=== PATIENT | male | born 1950 | race Two or more races ===

== ENCOUNTER 2019-08-05 08:20 | Day surgery (SDC) | payer MEDICARE, BC ==
[~2019-08-05] VITALS: Ht 182.9 cm; Wt 77.1 kg
[2019-08-05] VITALS (9 sets, daily range): BP systolic 125–158; BP diastolic 68–105
[2019-08-05] MEDS ORDERED: Lidocaine 1% MPF 10mg/ml 5ml ONE (09:00)
[2019-08-05] MEDS ORDERED: LR 1000ml ONE (09:00)
[2019-08-05] MEDS ORDERED: Propofol 200mg/20ml IV ONE (09:00)
--- NOTE | 2019-08-05 09:15 | Anethesia Preoperative Eval ---
Anesthesia Pre-op PMH/ROS General Date of Evaluation: Aug 05, 2019 Time of Evaluation: 09:12 Anesthesiologist: albert ASA Score: ASA 3 Mallampati Score Class I : Soft palate, uvula, fauces, pillars visible Class II: Soft palate, uvula, fauces visible Class III: Soft palate, base of uvula visible Class IV: Only hard plate visible Mallampati Classification: Class II Surgeon: carlos Diagnosis: blood in stool Surgical Procedure: egd/colonoscopy Anesthesia History: none Social History: smoking - nonsmoker Family History: no anesthesia problems Allergies: Coded Allergies: Ibuprofen (Verified Allergy, Itching, 08/05/19) Medications: see eMAR Patient NPO?: Yes Past Medical History Cardiovascular: Reports: HTN Pulmonary: Reports: other - sob Gastrointestinal/Genitourinary: Reports: other - colitis Hematology/Immune: Reports: anemia Musculoskeletal/Integumentary: Reports: other - left hand fracture Anesthesia Pre-op Phys. Exam Physician Exam Last Vital Signs Date Time Temp Pulse Resp B/P (MAP) Pulse Ox O2 Delivery O2 Flow Rate FiO2 08/05/19 09:04 98.5 100 18 135/77 96 Room Air Constitutional: NAD Neurologic: CN 2-12 intact Cardiovascular: RRR Respiratory: CTA Gastrointestinal: S/NT/ND Airway Exam Mallampati Score: Class II MO: limited Neck: flexible TMD: 2fb ROM: limited Anesthesia Pre-op A/P Risk Assessment & Plan Assessment: asa3 Plan: mac Status Change Before Surgery: No Pre-Antibiotics Drug: Lala Estrella MD Aug 05, 2019 09:15
[2019-08-05] MEDS ORDERED: LR 1000ml 1,000 ML IVLG SCH (09:24)
[2019-08-05] MEDS ORDERED: Midazolam 2mg/2ml Inj IVP PRN (09:30)
[2019-08-05] MEDS ORDERED: Atropine Inj 1mg/10ml Syr IV PRN (09:30)
[2019-08-05] MEDS ORDERED: fentaNYL 100 mcg/2 mL IV PRN (09:30)
[2019-08-05] MEDS ORDERED: DiphenhydrAMINE 50mg/ml Inj IVP PRN (09:30)
--- NOTE | 2019-08-05 09:32 | Short Stay Surgery H&P ---
History of Present Illness History of Present Illness Chief Complaint see attached H&P HPI Aguila Goss is a 69 year old male who was admitted on for Blood In Stool, Left Side Colitis Patient History Allergies: Coded Allergies: NSAIDS (NON-STEROIDAL ANTI-INFLAMMA (Verified Allergy, Severe, HIVES/RASH , 08/05/19) IBUPROFEN (Verified Allergy, Unknown, Itching, 08/05/19) Medication History No Active Prescriptions or Reported Meds Physical Exam Vital Signs Last Vital Signs Date Time Temp Pulse Resp B/P (MAP) Pulse Ox O2 Delivery O2 Flow Rate FiO2 08/05/19 09:09 Room Air 08/05/19 09:04 98.5 100 18 135/77 96 Plan Attestation Are the patient's medical conditions optimized for surgery? Dylan Pollack MD Aug 05, 2019 09:32
--- NOTE | 2019-08-05 09:32 | Pre-Procedure Note/Attestation ---
Pre-Procedure Note/Attestation Complete Prior to Procedure Planned Procedure: not applicable Procedure Narrative: esophagogastroduodenoscopy colon Indications for Procedure Pre-Operative Diagnosis: anemia OB (+) colitis Attestation I attest that I discussed the nature of the procedure; its benefits; risks and complications; and alternatives (and the risks and benefits of such alternatives ), prior to the procedure, with the patient (or the patient's legal volunteer patient representative). I attest that, if there was a reasonable possibility of needing a blood transfusion, the patient (or the patient's legal volunteer patient representative) was given the [facility] standardized written summary, pursuant to the Christian Belding Blood Safety Act ([place] Health and Safety Code # 1645, as amended). I attest that I re-evaluated the patient just prior to the surgery and that there has been no change in the patient's H&P, except as documented below: Dylan Pollack MD Aug 05, 2019 09:32
--- NOTE | 2019-08-05 11:36 | Immediate Post-Op Evaluation ---
Immediate Post-Op Evalulation Immediate Post-Op Evalulation Procedure: egd/colonoscopy w/bx Date of Evaluation: Aug 05, 2019 Time of Evaluation: 10:56 IV Fluids: 400ml lr Blood Products: none Estimated Blood Loss: negligible Blood Pressure Systolic: 153 Blood Pressure Diastolic: 101 Pulse Rate: 89 Respiratory Rate: 18 O2 Sat by Pulse Oximetry: 100 Temperature (Fahrenheit): 98.4 Pain Score (1-10): 0 Nausea: No Vomiting: No Complications none Patient Status: awake, reacts, patent Hydration Status: adequate Drug: Lala Estrella MD Aug 05, 2019 11:36
--- NOTE | 2019-08-05 11:45 | 48 Hour Post Anesthesia Eval ---
Post Anesthesia Evaluation Procedure: egd/colonoscopy w/bx Date of Evaluation: Aug 05, 2019 Time of Evaluation: 10:58 Blood Pressure Systolic: 128 0: 82 Pulse Rate: 93 Respiratory Rate: 18 Temperature (Fahrenheit): 98.4 O2 Sat by Pulse Oximetry: 99 Airway: patent Nausea: No Vomiting: No Pain Intensity: 0 Hydration Status: adequate Cardiopulmonary Status: stable Mental Status/LOC: patient returned to baseline Post-Anesthesia Complications: none Follow-up care needed: N/A Lala Ponce MD Aug 05, 2019 11:45
--- NOTE | 2019-08-06 12:27 | Endoscopy Procedure Note ---
Endoscopy Procedure Note General Indication for Procedure: anemia, ob (+) Procedures Performed: EGD, colonoscopy Operative Findings/Diagnosis: see dictation Specimen: yes Pt Tolerated Procedure Well: Yes Estimated Blood Loss: none Anesthesia Anesthesiologist: Venu Xavier Anesthesia: MAC Medications Medication Given: see anesthesia record Inserted Devices Implant(s) used?: No GI Core Measures 50 yrs or older w/o bx or poly: Not Applicable 10yrs. F/U recommended: Not Applicable If not recommended, why?: Dylan Pollack MD Aug 06, 2019 12:27
--- NOTE | 2019-08-06 12:28 | Brief Operative Note ---
Immediate Post Operative Note Operative Note Chief Complaint: Anemia Pre-op Diagnosis: anemia OB (+) colitis Procedure: esophagogastroduodenoscopy colon Post-op Diagnosis: see dictation Surgeon: carlos Specimen: yes Complications: none Fluids: per anesthesia Implant(s) used?: No Dylan Pollack MD Aug 06, 2019 12:28
--- NOTE | 2019-08-06 21:30 | Procedure Note ---
DATE OF PROCEDURE: 08/05/2019 PROCEDURE: Upper gastrointestinal endoscopy with biopsy, colonoscopy, and hot snare polypectomy. SURGEON: Dylan Pollack MD. ANESTHESIA: Dr. Hernandez. PRE-ENDOSCOPIC DIAGNOSES: 1. Heme-positive stools. 2. Anemia. 3. Possible colitis flare. POST-ENDOSCOPIC DIAGNOSES: 1. A 1 to 2 cm submucosal mass in the antrum and less than 1 cm submucosal mass in the fundus of the stomach, status post biopsy of both. 2. Status post random biopsies of normal duodenum and antrum. 3. Mild erythema in the terminal ileum up to 15 cm of unclear significance, status post biopsy. 4. A 1 cm polyp in the cecum, status post snare polypectomy. 5. A subcentimeter polyp in the cecum and another one in the ascending colon, status post hot snare polypectomy. 6. Diminutive polyps in the rectum. 7. Two patches of visible colitis seen affecting the colon in the circumferential manner, one in the hepatic flexure measuring approximately 10 cm in length and one in the distal rectum measuring about 3 to 4 cm in length. Both of these were biopsied separately. 8. Status post random biopsies of normal-appearing colon at 60, 50, 40, 30, and 20 cm. 9. Somewhat stenotic anus with ring-like narrowing, but the anus did allow the examiner's finger and the colonoscope. DESCRIPTION OF PROCEDURE: The procedure, its risks, indications, alternatives, and possible complications were explained to the patient and informed consent was obtained. The patient was then sedated in the left lateral decubitus position and a diagnostic upper endoscope was introduced into the oropharynx and advanced to the duodenum. Examination was notable for two submucosal lesions in the proximal and distal stomach. These were felt to be likely lipomas, but were biopsied for evaluation. Rectal exam was done, which showed a mild degree of ring-like stenosis. The colonoscope was advanced to the terminal ileum. No definite aphthous ulcers were seen to suggest Crohn disease, but there were some scattered erythematous spots of unclear significance. Biopsies were performed. A few polyps were removed from the colon as described above. In the colon, there were two patches of circumferential colitis with erythema, friability, mucosal granularity, and loss of mucosal detail, all consistent with classic inflammatory bowel disease. There was one patch in the hepatic flexure and another one in the distal rectum. The areas in between however were visually spared. Biopsies were obtained throughout the colon and sent to Pathology for review. The colonoscope was removed and the patient was sent to recovery in good condition. COMPLICATIONS: None. ASSESSMENT: The most notable feature of the examination, which was done predominantly for the patient's history of inflammatory bowel disease and anemia, with two patches of inflammation seen. The patient was recently given Lialda to take a dose of 4.8 g daily. That treatment may have resulted in some alteration of the mucosal pattern seen. The patient's own history was that he had distal colitis perhaps in the last 20 cm of the colon. The endoscopic picture, however, was different. Biopsies will be evaluated and further recommendations will be given. A consideration will also be made to evaluate the small bowel for any inflammatory activity. RECOMMENDATIONS: 1. Follow up biopsy results. 2. Continue Lialda. 3. Outpatient followup next week. Dylan Pollack M.D. DR: Annabelle JOB#: [id number] CC:
== END 2019-08-05 12:25 | disposition home or self-care (01) ==
LOC: GAS 08:20
DX: K92.1 Melena (principal); K63.5 Polyp of colon; K52.9 Noninfective gastroenteritis and colitis, unspecified; K62.4 Stenosis of anus and rectum; I10 Essential (primary) hypertension; Z88.6 Allergy status to analgesic agent; K29.70 Gastritis, unspecified, without bleeding; B96.81 Helicobacter pylori [H. pylori] as the cause of diseases classified elsewhere; D12.0 Benign neoplasm of cecum
CPT/HCPCS: 43239; 45380; 45384; J2704; J7120; 94003; 94150

== ENCOUNTER 2019-08-23 08:11 | Day surgery (SDC) | payer MEDICARE, BC ==
[~2019-08-23] VITALS: Ht 182.9 cm; Wt 64.4 kg
[2019-08-23] VITALS (11 sets, daily range): BP systolic 131–154; BP diastolic 72–98
[~2019-08-23 08:11] MED LIST: LR 1000ml 1,000 ML IVLG SCH
[2019-08-23] MEDS ORDERED: LIALDA1.2 GM ORAL (09:11)
--- NOTE | 2019-08-23 09:21 | Pre-Procedure Note/Attestation ---
Pre-Procedure Note/Attestation Complete Prior to Procedure Planned Procedure: not applicable Procedure Narrative: egd/EUS/colonoscopy Indications for Procedure Pre-Operative Diagnosis: malignant ascites Attestation I attest that I discussed the nature of the procedure; its benefits; risks and complications; and alternatives (and the risks and benefits of such alternatives ), prior to the procedure, with the patient (or the patient's legal junior sales representative). I attest that, if there was a reasonable possibility of needing a blood transfusion, the patient (or the patient's legal junior sales representative) was given the [facility] standardized written summary, pursuant to the Christian Milagros Blood Safety Act ([place] Health and Safety Code # 1645, as amended). I attest that I re-evaluated the patient just prior to the surgery and that there has been no change in the patient's H&P, except as documented below: Ricci Goldman MD August 23, 2019 09:21
--- NOTE | 2019-08-23 09:22 | Short Stay Surgery H&P ---
History of Present Illness History of Present Illness Chief Complaint malignant ascites HPI Aguila Goss is a 69 year old male who was admitted on for Gi Bleed, Diarrhea ,Malignancy, Ascites Patient History Allergies: Coded Allergies: NSAIDS (NON-STEROIDAL ANTI-INFLAMMA (Verified Allergy, Severe, HIVES/RASH , 08/05/19) IBUPROFEN (Verified Allergy, Unknown, Itching, 08/05/19) Medication History Scheduled Mesalamine (Lialda), 2.4 GM ORAL DAILY, (Reported) Review of Systems Cardiovascular: Reports: no symptoms Respiratory: Reports: no symptoms Skeletal: Reports: no symptoms Gastrointestinal: Reports: no symptoms Genitourinary: Reports: no symptoms Neurologic: Reports: no symptoms Endocrine: Reports: no symptoms Physical Exam Vital Signs Last Vital Signs Date Time Temp Pulse Resp B/P (MAP) Pulse Ox O2 Delivery O2 Flow Rate FiO2 08/23/19 09:12 Room Air 08/23/19 09:04 98.1 81 18 131/76 97 Skin: normal HENT: normal Heart: normal Lungs: normal Abdomen: normal Extremities: normal Plan Plan of Care EGD/EUS/colonoscopy Attestation Are the patient's medical conditions optimized for surgery? Attestation Response: yes Ricci Goldman MD August 23, 2019 09:22
[2019-08-23] MEDS ORDERED: LR 1000ml ONE (09:30)
[2019-08-23] MEDS ORDERED: Lidocaine 1% MPF 10mg/ml 5ml ONE (09:30)
[2019-08-23] MEDS ORDERED: LR 1000ml 1,000 ML IVLG SCH (10:16)
--- NOTE | 2019-08-23 10:29 | Anethesia Preoperative Eval ---
Anesthesia Pre-op PMH/ROS General Date of Evaluation: August 23, 2019 Time of Evaluation: 09:35 Anesthesiologist: albert ASA Score: ASA 3 Mallampati Score Class I : Soft palate, uvula, fauces, pillars visible Class II: Soft palate, uvula, fauces visible Class III: Soft palate, base of uvula visible Class IV: Only hard plate visible Mallampati Classification: Class II Surgeon: carson Diagnosis: gi bleed Surgical Procedure: egd, colonoscopy, eus Anesthesia History: none Social History: smoking - nonsmoker Family History: no anesthesia problems Allergies: Coded Allergies: NSAIDS (NON-STEROIDAL ANTI-INFLAMMA (Verified Allergy, Severe, HIVES/RASH , 08/05/19) IBUPROFEN (Verified Allergy, Unknown, Itching, 08/05/19) Medications: see eMAR Patient NPO?: Yes Past Medical History Cardiovascular: Reports: HTN Pulmonary: Reports: other - sob Gastrointestinal/Genitourinary: Reports: other - colitis, gi bleed, ascites, appetite change, weight loss Hematology/Immune: Reports: anemia Musculoskeletal/Integumentary: Reports: other - left hand fracture Anesthesia Pre-op Phys. Exam Physician Exam Last Vital Signs Date Time Temp Pulse Resp B/P (MAP) Pulse Ox O2 Delivery O2 Flow Rate FiO2 08/23/19 09:12 Room Air 08/23/19 09:04 98.1 81 18 131/76 97 Constitutional: NAD Neurologic: CN 2-12 intact Cardiovascular: RRR Respiratory: CTA Gastrointestinal: S/NT/ND Airway Exam Mallampati Score: Class II MO: limited Neck: flexible TMD: 2fb ROM: limited Anesthesia Pre-op A/P Labs covid-19 negative test x 2 Studies Pre-op Studies: EKG - nsr Risk Assessment & Plan Assessment: asa3 Plan: mac Status Change Before Surgery: No Pre-Antibiotics Drug: Lala Estrella MD August 23, 2019 10:29
[2019-08-23] MEDS ORDERED: DiphenhydrAMINE 50mg/ml Inj IVP PRN (10:30)
[2019-08-23] MEDS ORDERED: Atropine Inj 1mg/10ml Syr IV PRN (10:30)
[2019-08-23] MEDS ORDERED: Midazolam 2mg/2ml Inj IVP PRN (10:30)
[2019-08-23] MEDS ORDERED: fentaNYL 100 mcg/2 mL IV PRN (10:30)
--- NOTE | 2019-08-23 11:09 | Endoscopy Procedure Note ---
Endoscopy Procedure Note General Indication for Procedure: malignant ascites Procedures Performed: EGD, colonoscopy, other - EUS Operative Findings/Diagnosis: gastritis, colitis Specimen: yes Pt Tolerated Procedure Well: Yes Estimated Blood Loss: none Anesthesia Anesthesiologist: niels Anesthesia: MAC Inserted Devices Implant(s) used?: No Quality Quality of Bowel Preparation: Good Did scope reach the cecum?: Yes Was there any complications?: No GI Core Measures 50 yrs or older w/o bx or poly: No 10yrs. F/U recommended: Yes If not recommended, why?: Above average risk 18 years or older w/prev. colo: Yes <3yrs. since last colonoscopy: Yes Med reason:<3 yrs.: new ascites with colonoc source of malignancy om path Ricci Goldman MD August 23, 2019 11:09
--- NOTE | 2019-08-23 11:20 | Immediate Post-Op Evaluation ---
Immediate Post-Op Evalulation Immediate Post-Op Evalulation Procedure: egd/colonoscopy/eus w/bx Date of Evaluation: August 23, 2019 Time of Evaluation: 11:21 IV Fluids: 1100ml lr Blood Products: none Estimated Blood Loss: negligible Blood Pressure Systolic: 151 Blood Pressure Diastolic: 88 Pulse Rate: 82 Respiratory Rate: 18 O2 Sat by Pulse Oximetry: 99 Temperature (Fahrenheit): 99.1 Pain Score (1-10): 0 Nausea: No Vomiting: No Complications none Patient Status: awake, reacts, patent Hydration Status: adequate Drug: Lala Estrella MD August 23, 2019 11:20
--- NOTE | 2019-08-23 11:22 | 48 Hour Post Anesthesia Eval ---
Post Anesthesia Evaluation Procedure: egd/colonoscopy/eus w/bx Date of Evaluation: August 23, 2019 Time of Evaluation: 11:23 Blood Pressure Systolic: 159 0: 88 Pulse Rate: 78 Respiratory Rate: 18 Temperature (Fahrenheit): 99.1 O2 Sat by Pulse Oximetry: 99 Airway: patent Nausea: No Vomiting: No Pain Intensity: 0 Hydration Status: adequate Cardiopulmonary Status: stable Mental Status/LOC: patient returned to baseline Post-Anesthesia Complications: none Follow-up care needed: N/A Lala Ponce MD August 23, 2019 11:22
--- NOTE | 2019-08-23 16:15 | Procedure Note ---
DATE OF PROCEDURE: 08/23/2019 SURGEON: Ricci Goldman MD. PROCEDURE: Upper endoscopy with biopsy and colonoscopy with biopsy. ANESTHESIA: Per Dr. Hernandez. INSTRUMENT: Olympus adult flexible upper endoscope and colonoscope. INDICATION: Carcinomatosis. REASON FOR PROCEDURE: The procedure, risks, benefits, and possible consequences, including hemorrhage, aspiration, perforation and infection, and alternative treatments, were explained to the patient/legal guardian by Dr. Ricci Goldman and the patient/legal guardian understood and accepted these risks. DESCRIPTION OF PROCEDURE: After informed consent was obtained and the patient was adequately sedated, Olympus upper endoscope was advanced from mouth into the second portion of the duodenum and retroflexion was performed in the stomach. The patient had evidence of small lesion in the cardia of the stomach measured roughly the 5 mm with central ulceration. Multiple biopsy from this area was obtained. Otherwise, the rest of upper endoscopic examination grossly within normal limits. At this time, the upper endoscope was retrieved. The EUS scope was introduced. We started scanning at GE junction, first celiac axis was seen without any obvious celiac axis lymphadenopathy. The patient had a large ascites with evidence of carcinomatosis and ascites. The pancreas was atrophic, especially in the body and tail with some nodularity of the pancreatic parenchyma suspicious for prior history of possible pancreatitis. No obvious mass was seen in the body and tail. No pancreatic duct dilatation. Then, the scope was advanced to the duodenal bulb and second portion of the duodenum where the head of the pancreas was seen. Again, there was seen some evidence of calcification in the head of the pancreas suggestive of maybe prior history of pancreatitis. No pancreatic duct dilatation. At this time, the EUS scope was retrieved and the patient was turned over for colonoscopy. First, rectal exam was performed, which was positive for internal hemorrhoids. Then, the scope was advanced from rectum into the mid colon which could not pass the adult scope most probably from ascites. There was so much pressure on the colon and colon was very angulated, so we switched to adult upper scope and we were able to pass the scope all the way into the cecum. There was one small ulceration in the proximal ascending colon/cecum which was biopsied. This was measured about 5 mm. There was an area of the colitis measured roughly about 2 to 3 cm in length right at the area of the hepatic flexure area with one area of polyp looking in it. Multiple biopsy from this area was obtained. Rest of the colonic examination grossly looked within normal limits. Retroflexion of rectum showed evidence of internal hemorrhoids. SUMMARY OF FINDINGS: 1. Gastritis. 2. Small gastric lesion, see above for details, status post biopsy. 3. Challenging colonoscopy, had to use upper scope to get through. 4. segment of colitis in the area of hepatic flexure, status post multiple biopsy. 5. One single ulceration in the proximal ascending colon/cecum, status post biopsy. 6. Internal hemorrhoids. RECOMMENDATIONS: The findings were discussed with Dr. Sindi Rodriguez, oncologist. We will follow biopsy results and treat accordingly. Ricci Goldman M.D. DR: Kvng JOB#: [id number] CC:
== END 2019-08-23 13:00 | disposition home or self-care (01) ==
LOC: GAS 08:11
DX: C80.0 Disseminated malignant neoplasm, unspecified (principal); K29.70 Gastritis, unspecified, without bleeding; K31.9 Disease of stomach and duodenum, unspecified; K52.9 Noninfective gastroenteritis and colitis, unspecified; K64.8 Other hemorrhoids; K63.3 Ulcer of intestine; R18.8 Other ascites; Z88.6 Allergy status to analgesic agent; I10 Essential (primary) hypertension; D64.9 Anemia, unspecified; R06.02 Shortness of breath
CPT/HCPCS: 43239; 45380; 93005; 94003; J2704; J3010; J7120; 94150